=== PATIENT | female | born 1975 | race Caucasian/White ===

== ENCOUNTER 2018-07-11 15:13 | Outpatient (CLI) | payer BC, SELFPAY ==
[2018-07-11 16:42] LABS: FREE T4 1.23 ng/dL (0.76-1.46); TSH 1.74 uIU/mL (0.358-3.74)
== END 2018-07-11 15:33 ==
PROVIDERS: PCP Emergency Medicine; Visit Provider Emergency Medicine
DX: E03.9 Hypothyroidism, unspecified (principal)
CPT/HCPCS: 36415; 84439; 84443

== ENCOUNTER 2018-09-08 19:11 | Emergency (ER) | payer BC, SELFPAY ==
--- NOTE | 2018-09-08 19:30 | NUR.NOTE ---
pt has had a sore throat for the past 5 days and is concerned that she has strep no fever pt has been managing symptoms with ibuprofen and Tylenol
[2018-09-08 19:31] VITALS: BP 143/87; PULSE 98; RESP 15; TEMP 37.1; O2SAT 95
--- NOTE | 2018-09-08 20:07 | W.ED.GENAD ---
Discharge Plan Disposition Patient Disposition: HOME Condition: Good Discharge Details Chief Complaint: Sorethroat Clinical Impression: Pharyngitis Primary Care Provider: Melchor Paez ED Provider: Karl Coleman Home Meds and New Rx's Prescriptions: No Action levothyroxine [Synthroid] 125 MCG tablet 125 mcg PO DAILY Qty: 90 RF: 3 Discharge Instructions Instructions: Pharyngitis (ED) Additional Instructions: Please continue to take Tylenol and Motrin for pain. If you notice any worsening of your symptoms, or any new symptoms such as vomiting, diarrhea, fever, chills, shortness of breath, chest pain, numbness, weakness, or fainting , please return immediately to the emergency department for reevaluation. Please follow up with your primary care provider as soon as possible for reassessment and reevaluation. As always, it was a pleasure participating in your medical care today. Referrals: Melchor Paez, DO [Primary Care Provider] - Medical Decision Making This is a pleasant 43-year-old female who presents today with signs and symptoms clinically consistent with pharyngitis. She demonstrates no red flags of significant vital sign abnormality, difficulty swallowing or drinking, peritonsillar abscess or exudate, or neck mass. 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 Strep test was performed and is negative for any evidence of strep. Patient signs and symptoms do not appear clinically consistent with severe strep. I did offer the patient Decadron and Toradol, she is requesting to hold off on this for the time being. Recommend continue Tylenol and Motrin on an outpatient basis. I have extensively reviewed the treatment plan and discharge instructions with the patient and their family. I have addressed all patient concerns at this time. The patient and family was made aware of what symptoms to monitor for that would warrant a return to the emergency department. Discussed the plan with the patient and family, they demonstrate verbal understanding and agreement with our assessment and plan at this time. HPI General Date/Time Provider Initiated Documentation: 09/08/18 19:39. HPI Narrative: This is a pleasant 43-year-old female with no significant past medical history aside for hypothyroidism who presents today for sore throat for the last 4 days. The patient states that she is also had mild associated right and left-sided ear pain. She has been taking Tylenol and Motrin this has somewhat improved her symptoms. She denies any difficulty eating or drinking but does admit to some mild pain with this. She also notes that notable decrease in her voice secondary to her sore throat. The patient states that she is a school nurse and is exposed to strep and other viruses on a very frequent basis. She denies any associated neck pain, headache, chest pain, shortness of breath. She does have a very mild cough. She denies any nausea, vomiting, or diarrhea. She denies any pertinent family history, IV or illicit drug use, or recent surgical history. Related Data Home Medications Medication Instructions Recorded Confirmed levothyroxine [Synthroid] 125 mcg PO DAILY #90 tab-cap 08/02/17 09/08/18 Previous Rx's Medication Instructions Recorded levothyroxine [Synthroid] 125 mcg PO DAILY #90 tab-cap 08/02/17 Allergies Allergy/AdvReac Type Severity Reaction Status Date / Time ibuprofen AdvReac Intermediate stomach Verified 07/09/18 16:14 pain with high doses General Stated Complaint: Sorethroat SANTIAGO: 4 Review of Systems Review of Systems All systems reviewed & are unremarkable except as noted in HPI and below PFSH Surgical History section Ligation of fallopian tube Reduction mammoplasty (~2014) Family History Grandmother Personal history of malignant neoplasm NEGATIVE FAMILY HISTORY Ovarian cancer Diabetes CAD (coronary artery disease) Breast cancer Social History Smoking/Tobacco Use Status: Never Exam Narrative Exam Narrative: 1.Const: Well-nourished, Well-developed, appearing stated age 2.Eyes: PERRL, no conjunctival injection, and symmetrical lids. 3.ENT: Atraumatic external nose and ears. Moist MM. Neck: Symmetric, trachea midline, No thyromegaly. No evidence of erythema around the tympanic membranes, purulent effusion, or other significant TM abnormalities. Minimal erythema in the posterior oropharynx, no evidence of tonsillar exudate. No signs of tonsillar enlargement. Patient demonstrates good movement of cervical neck. There is no nuchal rigidity, no nuchal tenderness. Patient is able to flex the neck without any difficulty or significant pain. Negative Kernig's and Brudzinski sign. No peritonsillar mass, neck mass, or other abnormality on exam. 4.CVS: +S1/S2, No murmurs or gallops. Peripheral pulses 2+ and equal in all extremities. Brisk capillary refill in all extremities. 5.RESP: Unlabored respiratory effort. Clear to auscultation bilaterally. No wheezes rales or rhonchi 6.GI: Soft, Nontender/Nondistended, No hepatosplenomegaly. No guarding or rebound. 7.MSK: Normocephalic/Atraumatic, Extremities w/o deformity or ttp No cyanosis or clubbing, Normal movement of all extremities 8.Skin: Warm, Dry. No rashes or lesions. 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 Sensation grossly intact, no focal neurologic deficits. 10.Psych: (AAO) x3. Appropriate mood and affect Course Vital Signs Temperature 37.1 C 09/08/18 19:31 Pulse 98 H 09/08/18 19:31 Respiratory Rate 15 09/08/18 19:31 Blood Pressure 143/87 H 09/08/18 19:31 Pulse Oximetry 95 09/08/18 19:31 Temperature 37.1 C 09/08/18 19:31 Temperature Source Skin 09/08/18 19:31 Pulse 98 H 09/08/18 19:31 Respiratory Rate 15 09/08/18 19:31 Blood Pressure 143/87 H 09/08/18 19:31 Blood Pressure Position Sitting 09/08/18 19:31 Pulse Oximetry 95 09/08/18 19:31 Oxygen Delivery Method Room Air 09/08/18 19:31 Oxygen Flow Rate 0 09/08/18 19:31 Pain Level 5 09/08/18 19:31
== END 2018-09-08 20:14 | disposition home or self-care (01) ==
PROVIDERS: Emergency Provider Student in an Organized Health Care Education/Training Program; PCP Emergency Medicine
DX: J02.9 Acute pharyngitis, unspecified (principal)
CPT/HCPCS: 87880; 99282

== ENCOUNTER 2019-07-28 09:36 | Outpatient (CLI) | payer BC, SELFPAY ==
[2019-07-28 13:09] LABS: Hemoglobin A1C 5.8 % (3.8-5.6)
[2019-07-28 13:26] LABS: Calculated LDL 111 mg/dL; Cholesterol 187 mg/dL (<200); HDL Cholesterol 60 mg/dL (40-60); TSH 3.09 uIU/mL (0.36-3.74); Triglyceride 80 mg/dL (<150)
== END 2019-07-28 09:56 ==
PROVIDERS: PCP Emergency Medicine; Visit Provider Emergency Medicine
DX: Z00.00 Encounter for general adult medical examination without abnormal findings (principal); E03.9 Hypothyroidism, unspecified; E11.9 Type 2 diabetes mellitus without complications
CPT/HCPCS: 36415; 80061; 83036; 84443

== ENCOUNTER 2021-04-06 15:07 | Outpatient (REF) | payer BC, SELFPAY ==
[2021-04-06 15:50] LABS: Iron 43 ug/dL (50-170); Total Iron Binding Capacity 375 ug/dL (250-450); Transferrin Sat 11 % (15-50)
[2021-04-06 16:01] LABS: TSH 0.66 uIU/mL (0.36-3.74)
== END 2021-04-06 15:08 | disposition home or self-care (01) ==
LOC: LBN 15:07
PROVIDERS: PCP Emergency Medicine; Visit Provider Emergency Medicine
DX: E03.9 Hypothyroidism, unspecified (principal); D64.9 Anemia, unspecified; E66.9 Obesity, unspecified
CPT/HCPCS: 83540; 83550; 84443

== ENCOUNTER 2022-02-12 03:18 | Outpatient (CLI) | payer BC, SELFPAY ==
[2022-02-12 10:16] LABS: HCT 41.8 % (36.0-46.0); HGB 13.4 g/dL (11.2-15.7); MCH 27.8 pg (27.0-33.0); MCHC 32.1 % (32.0-36.0); MCV 87 fL (80-95); MPV 10.3 fL (8.0-11.0); Platelet Count 233 10^3/uL (130-400); RBC 4.82 10^6/uL (3.93-5.22); RDW 13.2 % (11.7-14.6); RDW-SD 41.4 fL; WBC 7.26 10^3/uL (4.4-10.8)
[2022-02-12 10:36] LABS: Hemoglobin A1C 5.6 % (<5.7)
[2022-02-12 11:09] LABS: ALT 24 U/L (14-59); AST 12 U/L (15-37); Albumin 3.7 g/dL (3.4-5.0); Alkaline Phosphatase 94 U/L (46-116); Anion Gap 8.8 mmol/L (3-11); BUN 12 mg/dL (7-18); Bilirubin, Total 0.4 mg/dL (0.2-1.0); CO2 27.2 mmol/L (21.0-32.0); CREATININE 0.8 mg/dL (0.55-1.02); Calcium 8.9 mg/dL (8.5-10.1); Chloride 103 mmol/L (98-107); FREE T4 0.93 ng/dL (0.76-1.46); Glucose 95 mg/dL (74-106); Potassium 3.8 mmol/L (3.5-5.1); Sodium 139 mmol/L (136-145); TSH 3.61 uIU/mL (0.36-3.74); Total Protein 7.9 g/dL (6.4-8.2)
[2022-02-12 11:33] LABS: Calculated LDL 115 mg/dL (<100); Cholesterol 201 mg/dL (<200); Ferritin 48 ng/mL (8-252); HDL Cholesterol 72 mg/dL (40-60); Triglyceride 74 mg/dL (<150)
[2022-02-12 14:04] LABS: Iron 51 ug/dL (50-170); Total Iron Binding Capacity 334 ug/dL (250-450); Transferrin Sat 15 % (15-50)
[2022-02-13 09:30] LABS: HIV-1/2 Ag & Ab Screen Negative (Negative)
[2022-02-13 09:50] LABS: Hepatitis C Ab w Rflx HCV PCR Negative (Negative)
== END 2022-02-12 03:19 | disposition home or self-care (01) ==
PROVIDERS: PCP Family Medicine; Visit Provider Family Medicine
DX: D64.9 Anemia, unspecified (principal); I10 Essential (primary) hypertension; E03.9 Hypothyroidism, unspecified; Z13.6 Encounter for screening for cardiovascular disorders; Z13.1 Encounter for screening for diabetes mellitus; Z11.59 Encounter for screening for other viral diseases; Z11.4 Encounter for screening for human immunodeficiency virus [HIV]
CPT/HCPCS: 36415; 80053; 80061; 85027; 86803; 87389; 82728; 83036; 83540; 83550; 84439; 84443

== ENCOUNTER 2022-10-02 10:33 | Outpatient (REF) | payer BC, SELFPAY ==
--- NOTE | 2022-10-02 09:40 | PAPFT_PTH ---
PATIENT: Leda Wallace LOC: [facility] U#:[id number] AGE/SX: 47/F ROOM: RE10/02/[address]: Keiry Mojica MD : 1975 BED: DIS: 10/02/2022 SPEC #: [id number] RECD: 10/02/22 12:28 STATUS: STEFFANIE REQ #: [id number] ONDINA: 10/02/22 09:[address]: Keiry Mojica DEPT: [facility] Cytology RECD BY: Ludivina Diaz ENTERED: 10/02/22 12:28 SP TYPE: PAPFT OTHR DR: Raquel Plunkett Tissues: 1 - CX/ENDOCX FOR PAP SMEARS Procedures: PAP THIN PREP/[facility] Screening HPV DNA PROBE Comments: [id number]
== END 2022-10-02 10:34 | disposition home or self-care (01) ==
LOC: LBN 10:33
PROVIDERS: PCP Family Medicine; Visit Provider Obstetrics & Gynecology
DX: Z12.4 Encounter for screening for malignant neoplasm of cervix (principal); Z11.51 Encounter for screening for human papillomavirus (HPV)
CPT/HCPCS: 88142; 87624

== ENCOUNTER 2022-10-15 03:18 | Outpatient (CLI) | payer BC, SELFPAY | END 2022-10-15 03:19 | disposition home or self-care (01) | LOC: LBO 03:19 | PROVIDERS: PCP Family Medicine; Visit Provider Family Medicine | DX: E03.9 Hypothyroidism, unspecified (principal) | CPT/HCPCS: 36415; 84443 ==

== ENCOUNTER 2022-10-15 10:18 | Outpatient (CLI) | payer BC, SELFPAY ==
--- NOTE | 2022-10-15 09:23 | DI.RAD_ITS ---
Exam(s) XR KNEE RT 3V AP,LAT,JOZEF EXAM: XR KNEE RT 3V AP,LAT,JOZEF CLINICAL HISTORY: right knee pain, rt medial knee pain, M25.561. TECHNIQUE: 2D digital imaging was performed of the right knee. Three views obtained. AP, lateral an d PA tunnel views were obtained. COMPARISON: No exams were available for comparison FINDINGS: BONES: No acute fracture is present. No bony destructive lesion is seen. There is a small enthesophyt e at the superior patella. JOINTS: The knee is normally aligned. No joint effusion is seen. SOFT TISSUE: Normal. IMPRESSION: Unremarkable radiographs of the right knee. DATA REPOSITORY: RADIATION DOSE DELIVERED:
== END 2022-10-15 10:38 ==
LOC: DI 10:19
PROVIDERS: PCP Family Medicine; Visit Provider Family Medicine
DX: M25.561 Pain in right knee (principal)
CPT/HCPCS: 73562

== ENCOUNTER 2022-11-05 01:52 | Outpatient (CLI) | payer BC, SELFPAY ==
--- NOTE | 2022-11-05 08:30 | DI.MAMMO_ITS ---
Exam(s) MAMMO SCREENING EXAM: MAMMO SCREENING CLINICAL HISTORY: screening,Z12.39. TECHNIQUE: Bilateral full field digital CC and MLO mammographic images were obtained with 3D tomosyn thesis and utilizing computer aided detection (CAD). COMPARISON: Prior mammogram of April 2016 was reviewed.. Patient has had prior bilateral reduction surgery. FINDINGS: No new significant radiograph findings in right breast. Left breast there is suggestion of possible asymmetric nodular asymmetry noted posterolaterally. Sli ghtly more prominent than previous. This is located 10 cm in from the nipple on the CC view, lateral of center, and measuring approximately 1.5 x 1.4 cm.. Also another possible nodular density on the MLO view located approximately 6 cm above the nipple on the MLO view. There are no malignant-appearing microcalcification groups in this region or elsewhere in either [address]. Architectural distortion from prior ducts in surgery again noted bilaterally. IMPRESSION: 1. No radiographic evidence of malignancy in the right breast. 2. Asymmetric densities left breast. Spot compression views and ultrasound recommended. BI-RADS Category 0 - Assessment Incomplete: Need additional imaging evaluation Breast Density - Category C - Heterogeneously dense Breast density Category C or D implies that the patient has dense breast tissue. Dense breast tissue can make it harder to find cancer on a mammogram. Dense breast tissue is also associated with an incr eased risk of breast cancer. This information about the result of the mammogram report was provided to the patient to raise their awareness. Use this report when you speak with the patient about their risks for breast cancer, which includes their family history. At that time, you may recommend additional screening tests (Ultrasoun d or MRI) as these tests may add significant information. A negative radiographic report should not delay biopsy if a dominant or clinically suspicious mass is present. Up to ten percent of cancers are not identified on mammography. A negative report may reinforce clinical impression. Adenosis and dense breasts may obscure an underlying neoplasm. False positive reports average 6 to 10%. Patient will receive a letter notifying them of these results.
== END 2022-11-05 02:12 ==
LOC: DI 01:52
PROVIDERS: PCP Family Medicine; Visit Provider Obstetrics & Gynecology
DX: Z12.31 Encounter for screening mammogram for malignant neoplasm of breast (principal); R92.8 Other abnormal and inconclusive findings on diagnostic imaging of breast
CPT/HCPCS: 77063; 77067

== ENCOUNTER 2022-11-07 01:20 | Outpatient (CLI) | payer BC, SELFPAY ==
--- NOTE | 2022-11-07 | DI.MAMMO_ITS ---
Exam(s) MAMMO SCREEN CALL BACK UNI EXAM: MAMMO SCREEN CALL BACK UNI CLINICAL HISTORY: F/U MAMMO, R92.9,LT ASYMMETRIC DENSITIES,TWO AREAS TECHNIQUE: Spot compression views with tomographic imaging were performed of the upper and outer por tions of the left breast.. COMPARISON: 23 April 2016 FINDINGS: Scarring is again noted related to prior breast reduction surgery. No suspicious masses or suspiciou s microcalcifications are seen. No persistent abnormality is seen on the additional views performed. The findings are consistent wit h overlying fibroglandular tissue. There has been no significant change from prior exam. IMPRESSION: BI-RADS Category 1, Negative Yearly screening mammography is recommended. Breast Density - Category B, scattered fibroglandular densities.
== END 2022-11-07 01:40 ==
LOC: DI 01:21
PROVIDERS: PCP Family Medicine; Visit Provider Obstetrics & Gynecology
DX: Z12.31 Encounter for screening mammogram for malignant neoplasm of breast (principal); R92.8 Other abnormal and inconclusive findings on diagnostic imaging of breast; N64.59 Other signs and symptoms in breast
CPT/HCPCS: 77063; 77067

== ENCOUNTER → 2023-11-13 03:33 | Outpatient (CLI) | payer BC, SELFPAY ==
--- NOTE | 2023-11-13 08:30 | DI.MAMMO_ITS ---
Exam(s) MAMMO SCREENING EXAM: MAMMO SCREENING CLINICAL HISTORY: screening,z12.39. TECHNIQUE: Bilateral full field digital CC and MLO mammographic images were obtained with 3D tomosyn thesis and utilizing computer aided detection (CAD). COMPARISON: Prior mammograms were reviewed. There has been prior bilateral reduction surgery. FINDINGS: There has been no significant change in the appearance and distribution of the fibroglandular tissue. Architectural distortion from the prior reduction surgery is again noted. There are no new spiculated masses nor malignant appearing microcalcification groups. There is no new significant architectural distortion nor skin thickening-retraction. IMPRESSION: Stable benign findings. No radiographic evidence of malignancy. BI-RADS Category 2 - Benign Findings Breast Density - Category C - Heterogeneously dense Breast density Category C or D implies that the patient has dense breast tissue. Dense breast tissue can make it harder to find cancer on a mammogram. Dense breast tissue is also associated with an incr eased risk of breast cancer. This information about the result of the mammogram report was provided to the patient to raise their awareness. Use this report when you speak with the patient about their risks for breast cancer, which includes their family history. At that time, you may recommend additional screening tests (Ultrasoun d or MRI) as these tests may add significant information. A negative radiographic report should not delay biopsy if a dominant or clinically suspicious mass is present. Up to ten percent of cancers are not identified on mammography. A negative report may reinforce clinical impression. Adenosis and dense breasts may obscure an underlying neoplasm. False positive reports average 6 to 10%. Patient will receive a letter notifying them of these results.
== END ==
PROVIDERS: PCP Family Medicine; Visit Provider Family Medicine
DX: Z12.31 Encounter for screening mammogram for malignant neoplasm of breast (principal); Z98.890 Other specified postprocedural states
CPT/HCPCS: 77063; 77067